=== PATIENT | female | born 1945 | race Caucasian/White ===

== ENCOUNTER 2021-12-03 12:08 | Observation (INO) | payer MEDICARE, OTHER, SELFPAY ==
[2021-12-03] VITALS (8 sets, daily range): BP systolic 141–182; BP diastolic 74–105; PULSE 78–99; RESP 16–18; TEMP 36.4–36.6; O2SAT 93–98; BMI 42.3; BMI 40.6
--- NOTE | 2021-12-03 12:34 | CT_ITS ---
STUDY: CTA HEAD AND NECK WITH CONTRAST REASON FOR EXAM: Female, 76 years old. Vertigo RADIATION DOSAGE (If Supplied By Facility): CTDIvol = ( 27.50 ) mGy, DLP = ( 1562.86 ) mGycm TECHNIQUE: CT angiography was performed with a multi-detector CT scanner. Data acquisition was obtained from the skull base through the vertex following intravenous administration of IV 100mL Isovue-[id number]. MIP images were reconstructed from the axial data set. Post-processing of the angiographic images was performed, with multiplanar reformation and 3D reconstruction. Individualized dose optimization techniques were used for this CT. COMPARISON: No relevant priors. FINDINGS: Normal bilateral petrous carotid arteries. There is calcified plaque formation of the right cavernous carotid artery, without a cross-sectional luminal stenosis. There is calcified plaque formation of the left cavernous carotid artery, without a cross-sectional luminal stenosis. Normal right A1 segments of the anterior cerebral artery. Normal left A1 segments of the anterior cerebral artery. Normal intact anterior communicating artery (ACOM). Normal bilateral A2 segments of the anterior cerebral arteries. Normal right M1 and M2 segments of the middle cerebral arteries, with a normal M1 bifurcation. Normal left M1 and M2 segments of the middle cerebral arteries, with a normal M1 bifurcation. Normal right posterior communicating artery (PCOM). There is a persistent origin of the left posterior cerebral artery with absence of the posterior communicating artery (PCOM). Normal bilateral vertebral arteries. Normal basilar artery with a normal basilar bifurcation. The visualized bilateral superior cerebellar (SCA) arteries are normal. Normal bilateral P1, P2 and visualized P3 segments of the posterior cerebral arteries. There is no demonstrated aneurysm of the [place]. Tiny lacunar infarcts in both basal ganglia. Mild degree of cerebral atrophy with the decreased markings in the periventricular distribution in keeping with small vessel disease. There is a 9.6 mm round lucency in the vertex of the right upper lobe age with a prior focal infarct. AORTIC ARCH: There is atherosclerotic calcific plaque formation of the aortic arch and great vessels arising from the aortic arch, without a hemodynamically significant stenosis. There is a bovine origin of the great vessels with a common origin of the brachiocephalic and left common carotid artery. Normal origin of the left subclavian artery. Atherosclerotic plaque formation at the origin of the right brachiocephalic artery. Heterogeneous appearance of the thyroid gland more prominent in the right lobe. RIGHT CAROTID ARTERIES: Normal right common carotid artery (CCA). Normal right common carotid bulb. Normal origin of the right internal carotid (ICA) artery without a hemodynamically significant stenosis. Normal visualized cervical portion of the right internal carotid artery. Normal origin of the right external carotid artery (ECA). LEFT CAROTID ARTERIES: Normal left common carotid artery (CCA). Normal left common carotid bulb. There is mild atherosclerotic plaque formation of the origin of the left internal carotid artery with less than 50% cross sectional diameter stenosis. Normal visualized cervical portion of the left internal carotid artery. Normal origin of the left external carotid artery (ECA). VERTEBRAL ARTERIES: There is enhancement within the bilateral vertebral arteries with a small left vertebral artery, and a dominant right vertebral artery. CT/CTA Head AND Neck W/ Contrast IMPRESSION: Mild nonstenotic calcific plaques at the origin of the left internal carotid artery. Small caliber left vertebral artery. 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 Electronically Signed: Inder Lloyd MD at 14:29 EST ,
--- NOTE | 2021-12-03 12:34 | EKG12_ITS ---
Test Reason : DIZZINESS Blood Pressure : / mmHG Vent. Rate : 089 BPM Atrial Rate : 089 BPM P-R Int : 162 ms QRS Dur : 082 ms QT Int : 382 ms P-R-T Axes : 051 044 016 degrees QTc Int : 464 ms Normal sinus rhythm Nonspecific ST abnormality Abnormal ECG Confirmed by JOE BOB, MERRICK ([id number]), associate entertainment editor KARSTEN FRAGOSO ([id number]) on 12/04/2021 11:34:27 AM Referred By: GORGE Confirmed By:MERRICK DIAZ MD
--- NOTE | 2021-12-03 12:45 | EX.ED.DYSGE1 ---
HPI History of Present Illness Chief Complaint: Dizziness Informant: patient Onset/Context/Timing Onset: Today Context: Sudden Onset Current Severity: Moderate Maximum Severity: Severe Narrative Narrative: Patient presents with abrupt onset of vertigo. Patient states he drove 70 miles to come visit someone. After getting out of the truck and walking up the sidewalk she developed sudden onset of vertigo. She states she also initially had trouble with her right arm shaking. That has subsided. She does report a history of vertigo but does not remember if there was an inciting factor. She denies chest pain or shortness of breath. No headache. She has had nausea and vomiting secondary to the dizziness. [facility] Medical History High cholesterol HTN (hypertension) Home Medications aspirin [Aspirin Low Dose] 81 mg PO DAILY 12/03/21 [History Last Taken 12/03/21] diltiazem HCl 240 mg PO DAILY 12/03/21 [History Last Taken 12/03/21] duloxetine 60 mg PO DAILY 12/03/21 [History Last Taken 12/03/21] hydrochlorothiazide 25 mg PO DAILY 12/03/21 [History Last Taken 12/03/21] ropinirole 2 mg PO QHS 12/03/21 [History Last Taken 12/02/21] simvastatin 10 mg PO QHS 12/03/21 [History Last Taken 12/02/21] spironolactone 25 mg PO DAILY 12/03/21 [History Last Taken 12/03/21] tolterodine 4 mg PO DAILY 12/03/21 [History Last Taken 12/02/21] Allergy/AdvReac Type Severity Reaction Status Date / Time levofloxacin [From Levaquin] Allergy PT UNSURE Verified 12/03/21 12:13 OF REACTION Sulfa (Sulfonamide Allergy Hives Verified 12/03/21 12:13 Antibiotics) Surgical History History of back surgery History of bladder surgery Hx of cholecystectomy S/P TKR (total knee replacement) Social History Smoking Status: Never smoker ROS ROS ED Constitutional Constitutional ED: Denies chills or fever(s) Eyes Eyes: Denies change in vision ENT ENT ED: Denies sore throat Cardiovascular Cardiovascular: Denies chest pain Respiratory/Chest Respiratory/Chest: Denies cough or dyspnea Gastrointestinal Gastrointestinal: Reports nausea and vomiting; Denies abdominal pain or diarrhea Genitourinary Genitourinary ED: Denies dysuria Musculoskeletal Musculoskeletal: Denies back pain or neck pain Integumentary Denies rash Neurologic Neurologic: Denies headache(s) or weakness Allergic/Immunologic Allergic/Immunologic ED: Denies urticaria EXAM Physical Exam Const Vital Signs: 12/03/21 12:09 12/03/21 12:16 12/03/21 14:45 Temperature 97.8 F Temperature Source Oral Pulse Rate 93 89 Respiratory Rate 16 18 Blood Pressure 182/74 H 155/76 H 161/85 H Blood Pressure Mean 110 102 110 Pulse Ox 96 98 Oxygen Delivery Method Room Air Room Air Positive well nourished and well developed General Appearance ED: well developed HEENT Reports moist mucous membranes Eyes PERRL and EOMs intact bilaterally Neck supple Chest Wall inspection of chest normal and palpation of chest normal Resp normal respiratory effort and clear to auscultation bilaterally Cardio regular rate and regular rhythm GI non-tender Palpation: soft Neuro oriented x3 and CN's II-XII intact bilaterally Neuro Narrative: No focal neurologic deficits at this time. Normal strength and sensation in all extremities. No facial droop noted. Sensorium / Orientation: alert Psych mental status grossly normal Skin no rashes or lesions noted MDM MDM MDM Narrative Medical decision making narrative: Patient initially given Zofran for nausea followed by Reglan and Benadryl. Lab work obtained, EKG ordered, CTA of the head and neck ordered. Lab Data Attestation: I reviewed the patient's lab results. Labs: Laboratory Results - last 24 hr 12/03/21 12/03/21 12/03/21 13:08 13:08 13:08 WBC 14.1 H RBC 4.78 Hgb 14.2 Hct 44.2 MCV 92.5 MCH 29.7 MCHC 32.1 RDW Std Deviation 46.3 H RDW Coeff of Shweta 13.6 Plt Count 326 MPV 9.6 Immature Gran % (Auto) 0.900 Neut % (Auto) 84.8 H Lymph % (Auto) 7.4 L [place] % (Auto) 6.7 Eos % (Auto) 0.1 Baso % (Auto) 0.1 Absolute Neuts (auto) 12.0 H Absolute Lymphs (auto) 1.04 Nucleated RBC % 0 PT 12.4 INR 1.0 APTT < 24.0 L Sodium 136 Potassium 3.9 Chloride 100 Carbon Dioxide 28.0 Anion Gap 8 BUN 25 H Creatinine 0.92 Estim Creat Clear Calc 36.20 Est GFR (MDRD) Af Amer 76 Est GFR (MDRD) Non-Af 63 BUN/Creatinine Ratio 27.3 H Glucose 160 H Calcium 9.9 Troponin I High Sens 9 Radiography Diagnostic Testing: Clinical Impression(s) from Imaging Studies Head/Neck CTA 12/03/21 12:34 IMPRESSION: Mild nonstenotic calcific plaques at the origin of the left internal carotid artery. Small caliber left vertebral artery. 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 Electronically Signed: Inder Lloyd MD at 14:29 EST , EKG Initial EKG: Attestation: I personally reviewed and interpreted this EKG as follows: Interpretation: Sinus Rhythm (Sinus 89 with no acute ischemia.) Treatment and Re-Evaluation Comments:: Repeat evaluation patient still feels nauseated and vertiginous. Nursing staff attempted to get patient up to bedside commode and states that she was very unsteady. Lab work is unremarkable. CTA of the head and neck reveal old lacunar infarcts but no acute findings at this time. I am concerned for possible stroke etiology as patient reported was just walking when this started. I did recommend admission for MRI and further work-up. I will speak with hospitalist. Discharge Plan Dx/Rx/DC Orders Clinical Impression: Vertigo Disposition Disposition: Acute Care Hospital [facility]
[2021-12-03] MEDS: 0.9% Normal Saline 1,000 ML 150 ML IV (13:10)
[2021-12-03] MEDS: Ondansetron 4 MG/2 ML Vial IV ×2 (13:10→18:57)
[2021-12-03 13:21] LABS: Absolute Lymphocyte Count 1.04 X10^3/uL (0.83-4.51); Basophil# 0.02 X10^3/uL; Basophil% 0.1 % (0-1); Eosinophil# 0.02 X10^3/uL; Eosinophils% 0.1 % (0-5); Hematocrit 44.2 % (37-47); Hemoglobin 14.2 g/dL (12.0-15.0); Lymphocyte # 1.04 X10^3/ul (0.83-4.51); Lymphocyte % 7.4 % (19-41); Mean Corp Hgb Conc 32.1 g/dL (32-36); Mean Corpuscular Hgb 29.7 pg (27.0-32.0); Mean Corpuscular Volume 92.5 fL (81-99); Mean Platelet Vol. 9.6 fl (6.2-12.0); Monocyte# 0.94 X10^3/uL; Monocyte% 6.7 % (0-10); NRBC Flagged by Analyzer 0 % (0-5); Neutrophil # 11.96 X10^3/uL (2.7-7.7); Neutrophil % 84.8 % (47-70); Platelet Count 326 K/mm3 (150-450); RBC Distribution Width CV 13.6 % (11.6-14.6); RBC Distribution Width SD 46.3 fl (35.1-43.9); Red Blood Count 4.78 M/mm3 (4.2-5.4); White Blood Count 14.1 K/mm3 (4.4-11.0)
[2021-12-03 13:41] LABS: Anion Gap 8 (5-15); BUN 25 mg/dL (7-18); BUN/Creat Ratio 27.3 RATIO (10-20); Calcium,Total 9.9 mg/dL (8.5-10.1); Chloride 100 mmol/L (98-107); Creatinine, Serum 0.92 mg/dL (0.55-1.02); EST Glomerular Filtration Rate 63 mL/min (>60); Est Glom Filt Rate - Afr Amer 76 mL/min (>60); Glucose 160 mg/dL (74-106); Potassium 3.9 mmol/L (3.5-5.1); Sodium Level 136 mmol/L (136-145); Troponin-I HS 9 pg/mL (3.0-54.0)
[2021-12-03 13:42] LABS: Prothrombin Time (Protime)PT. 12.4 SECONDS (11.7-14.9)
[2021-12-03 14:03] LABS: Partial Thromboplast Time < 24.0 Seconds (24.1-36.2)
[2021-12-03] MEDS: Metoclopramide 10 MG/2 ML Vial 5 MG IV (14:14)
[2021-12-03] MEDS: DiphenhydrAMINE 50 MG/ML Syringe 12.5 MG IV (14:15)
--- NOTE | 2021-12-03 16:00 | MRI_ITS ---
EXAM: MR HEAD WITHOUT INTRAVENOUS CONTRAST CLINICAL INDICATION: Vertigo TECHNIQUE: Multiplanar and multisequence MR images of the brain were obtained without intravenous contrast. This report was created using GPal report generation technology. COMPARISON: None. FINDINGS: BRAIN AND EXTRA-AXIAL SPACES: Chronic involutional changes of the brain. No intra- or extra-axial hemorrhage. No evidence of acute infarct. No intracranial mass or mass effect. There is preservation of the juarez/white matter interface. Posterior fossa structures are unremarkable. Ventricles are appropriate for age. No hydrocephalus. Basal cisterns are patent. SELLA: Unremarkable. Normal sella turcica, pituitary gland, infundibular stalk, optic chiasm and hypothalamus. AUDITORY SYSTEM: Unremarkable. The internal auditory canals are patent. BONES/JOINTS: Unremarkable. No discrete lytic or blastic abnormalities. SINUSES: Unremarkable as visualized. Clear. MASTOID AIR CELLS: Unremarkable as visualized. Clear. ORBITS: Unremarkable as visualized. Both globes, extraocular muscles, optic nerves and retrobulbar fat appear unremarkable. VASCULATURE: Unremarkable as visualized. Normal flow voids in the major intracranial circulation. MRI/Brain without Contrast IMPRESSION: No acute findings in the head/brain. Electronically Signed: Naveen Chavarria MD at 18:14 EST ,
--- NOTE | 2021-12-03 16:11 | CM.ED ---
RN CM Assessment Introduced role of RN CM to patient and patient Uriel at bedside. Patient is alert, oriented and able to participate in RN CM Assessment. Care providers, pharmacy, and demographics verified. Admit Dx: Vertigo Re-Admit: no Barriers/Issues: None. Patient drove with approx 70 miles to visit friends. PCP: Shlomo Ga Specialists: Ortho Preferred [facility]acy: [facility] Insurance: [facility] A/B, [employer] Benefit: Yes LNOK: Uriel Grijalva LW/HPOA: Patient states has both LW and HPOA completed. HPOA- Uriel Grijalva. Living Arrangements: Lives with in a 2SH, patient sleeps on gnd level. 3 steps to enter home w/rails. ADL?s: Ambulates with straight cane, Independent with ADLs Transportation: Both patient and drive. DME: Straight cane HHC: Past after knee surgery SNF: Rehab after knee surgery Goal: Home with and does not think will have any issues or concerns with going home. DC PLAN: Home with no anticipated needs identified at this time. RNCM f/u mobility prior to DC. Patient plan to have MRI. DALE Pérez
--- NOTE | 2021-12-03 16:21 | HP.PCM.HOS_ITS ---
Documented by User: Harjinder GARCIA 12/03/21 16:53 HPI - General General Date of Admission: 12/03/21 Date of Service: 12/03/21 Chief Complaint: Vertigo HPI Narrative NICKY BROWN is a 76-year-old female who presented to the ED at [facility] on 12/03/2021 with a chief complaint of vertigo. Patient reports that earlier today she drove over an hour to see her friend, when attempting to dismount from the truck this morning she immediately began to experience the onset of vertigo. Patient did not suffer any fall or lose consciousness with vertigo, but has had difficulty with her right arm shaking ever since their vertigo episode. Patient also seen on my evaluation with rhythmic leg jerks, which patient attributes to her RLS. Patient does not complain of headache, vision changes, slurred speech, numbness/tingling, or weakness in the upper/lower extremities. Patient does report some nausea and vomiting secondary to the dizziness of the vertigo. Patient denies any prior history of stroke, but does have a history of high cholesterol and hypertension. Patient denies any history of diabetes mellitus. Vital signs obtained in the ED are stable. CBC does demonstrate mildly elevated WBCs at 14.1, hemoglobin is 14.2 and platelets are 326. BMP is unremarkable. High-sensitivity troponins are not elevated. CT?A of the head/neck does demonstrate mild nonstenotic calcific plaques at the left ICA and old lacunar infarcts in the basal ganglion bilaterally as well is in the vertex portion of the right frontal lobe. Patient was given Zofran, Reglan and Benadryl in the ED, and patient reports symptoms are currently controlled. FOR[facility]LY [facility] Medical History High cholesterol HTN (hypertension) Non-smoker Restless legs Sleep apnea Home Medications aspirin [Aspirin Low Dose] 81 mg PO DAILY 12/03/21 [History Last Taken 12/03/21] diltiazem HCl 240 mg PO DAILY 12/03/21 [History Last Taken 12/03/21] duloxetine 60 mg PO DAILY 12/03/21 [History Last Taken 12/03/21] hydrochlorothiazide 25 mg PO DAILY 12/03/21 [History Last Taken 12/03/21] ropinirole 2 mg PO QHS 12/03/21 [History Last Taken 12/02/21] simvastatin 10 mg PO QHS 12/03/21 [History Last Taken 12/02/21] spironolactone 25 mg PO DAILY 12/03/21 [History Last Taken 12/03/21] tolterodine 4 mg PO DAILY 12/03/21 [History Last Taken 12/02/21] Allergy/AdvReac Type Severity Reaction Status Date / Time levofloxacin [From Levaquin] Allergy PT UNSURE Verified 12/03/21 12:13 OF REACTION Sulfa (Sulfonamide Allergy Hives Verified 12/03/21 12:13 Antibiotics) Family History (Updated 12/03/21 @ 16:42 by Harjinder GARCIA) Father CVA (cerebral vascular accident) Mother Cancer Surgical History History of appendectomy History of back surgery History of bladder surgery Hx of cholecystectomy S/P TKR (total knee replacement) Social History Smoking Status: Never smoker ROS Constitutional Constitutional: Denies anorexia, change in weight, chills, fatigue, fever(s), malaise, night sweats, weakness or other Eyes Eyes: Denies blurry vision, change in eye color, change in vision, discharge from eye(s), double vision, erythema, eye pain, loss of vision or other ENT HEENT: Denies abnormal hearing, dysphagia, ear pain, epistaxis, headache(s), hearing loss, nasal congestion, nasal discharge, post nasal drip, sinus pressure, sore throat or other Cardiovascular Cardiovascular: Denies chest pain, claudication, dyspnea on exertion, edema, lightheadedness, orthopnea, palpitations, paroxysmal nocturnal dyspnea, rapid heart rate, syncope or other Respiratory/Chest Respiratory/Chest: Denies cough, dyspnea, excessive phlegm production, hemoptysis, productive cough, shortness of breath at rest, shortness of breath with exertion, wheezing or other Gastrointestinal Gastrointestinal: Denies abdominal pain, coffee ground emesis, constipation, diarrhea, dyspepsia, hematemesis, hematochezia, loose stools, melena, nausea, vomiting or other Genitourinary Genitourinary: Denies burning urination, difficulty urinating, dysuria, hematuria, nocturia, urinary frequency, urinary hesitancy, urinary incontinence, urinary urgency or other Musculoskeletal Musculoskeletal: Denies arthralgias, back pain, joint pain, joint stiffness, joint swelling, myalgias, neck pain or other Neurologic Neurologic: Reports dizziness; Denies abnormal gait, abnormal speech, confusion, disequilibrium, focal weakness, headache(s), numbness, paresthesias, seizure- like activity, seizures, syncope, tingling, tremor(s) or other Psychiatric Psychiatric: Denies anxiety, depression, homicidal ideation, suicidal ideation or other Endocrine Endocrinology: Denies change in body appearance, cold intolerance, excessive sw eating, heat intolerance, polydipsia, polyuria or other Hematologic/Lymphatic Hematologic/Lymphatic: Denies anemia, easy bleeding, easy bruising, lymphadenopathy or other Allergic/Immunologic Allergic/Immunologic: Denies rhinitis, hives, eczemia, asthma or other Vital Signs Vital Signs Vital Signs: 12/03/21 12:09 12/03/21 12:16 12/03/21 14:45 Temperature 97.8 F Temperature Source Oral Pulse Rate 93 89 Respiratory Rate 16 18 Blood Pressure 182/74 H 155/76 H 161/85 H Blood Pressure Mean 110 102 110 Pulse Ox 96 98 Oxygen Delivery Method Room Air Room Air 12/03/21 16:07 Temperature 97.5 F L Temperature Source Oral Pulse Rate 78 Respiratory Rate 16 Blood Pressure 148/74 H Blood Pressure Mean 98 Pulse Ox 98 Oxygen Delivery Method Room Air Weight Weight: 208 lb 4.8 oz Body Mass Index (BMI) 40.6 Physical Exam Const alert and oriented x3 General Appearance: cooperative HEENT normocephalic, head/scalp atraumatic and hearing grossly normal bilaterally Eyes PERRL and EOMs intact bilaterally Neck no lymphadenopathy, supple and no JVD Resp normal respiratory effort, no retractions and no use of accessory muscles Cardio regular rate, regular rhythm and no JVD GI normal to inspection, nondistended, normoactive bowel sounds Extremity normal to inspection Skin no rashes or lesions noted, no wounds and skin turgor normal Neuro CN's II-XII intact bilaterally Psych affect normal Results Lab / Micro Data Result Diagrams: 12/03/21 13:08 12/03/21 13:08 Labs: Laboratory Results - last 24 hr 12/03/21 13:08: WBC 14.1 H, RBC 4.78, Hgb 14.2, Hct 44.2, MCV 92.5, MCH 29.7, MCHC 32.1, RDW Std Deviation 46.3 H, RDW Coeff of Shweta 13.6, Plt Count 326, MPV 9.6, Immature Gran % (Auto) 0.900, Neut % (Auto) 84.8 H, Lymph % (Auto) 7.4 L, Rosebud % (Auto) 6.7, Eos % (Auto) 0.1, Baso % (Auto) 0.1, Absolute Neuts (auto) 12.0 H, Absolute Lymphs (auto) 1.04, Nucleated RBC % 0 12/03/21 13:08: PT 12.4, INR 1.0, APTT < 24.0 L 12/03/21 13:08: Sodium 136, Potassium 3.9, Chloride 100, Carbon Dioxide 28.0, Anion Gap 8, BUN 25 H, Creatinine 0.92, Estim Creat Clear Calc 36.20, Est GFR (MDRD) Af Amer 76, Est GFR (MDRD) Non-Af 63, BUN/Creatinine Ratio 27.3 H, Gl ucose 160 H, Calcium 9.9, Troponin I High Sens 9 Radiology Impression Head/Neck CTA 12/03/21 12:34 IMPRESSION: Mild nonstenotic calcific plaques at the origin of the left internal carotid artery. Small caliber left vertebral artery. 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 Electronically Signed: Inder Lloyd MD at 14:29 EST , Assessment & Plan Assessment/Plan (1) Vertigo: PLAN: Patient is a 76-year-old female who presents to the ED at [facility] on 12/03/2021 with a chief complaint of vertigo. Patient will be admitted for evaluation management of vertigo as well as stroke rule out. 1) vertigo/stroke rule out. Patient presents with a 12-hour history of vertigo. Denies new and does not demonstrate any focal neurological deficits. CT-A of the head/neck did not demonstrate any severe stenosis or vessel abnormality. Patient does have a history of hypertension and high cholesterol, for which he takes medications for. Denies any prior stroke or seizure history. Patient is not diabetic. Believe patient's vertigo is more vertiginous in nature and is not related to stroke, but will rule out all the same. Plan; placed on PCU for observation, obtain brain MRI, obtain fasting lipid profile, obtain CBC and CMP in a.m., serial NIHSS every 4 hours, as needed Zofran, Compazine and Valium ordered. 2) HTN Stable, continue diltiazem and hydrochlorothiazide hold spironolactone. 3) depression/anxiety Continue Cymbalta. 4) RLS Continue ropinirole. DVT prophylaxis - low risk, not indicated Patient seen by Harjinder Varghese PA-C, under the supervision of Dr. Spence. Time spent on patient care: 25 minutes. Documented by User: Dr. Frankie Spence, 12/03/21 18:26 HPI - General General Date of Admission: 12/03/21 [facility] Medical History High cholesterol HTN (hypertension) Non-smoker Restless legs Sleep apnea Home Medications aspirin [Aspirin Low Dose] 81 mg PO DAILY 12/03/21 [History Last Taken 12/03/21] diltiazem HCl 240 mg PO DAILY 12/03/21 [History Last Taken 12/03/21] duloxetine 60 mg PO DAILY 12/03/21 [History Last Taken 12/03/21] hydrochlorothiazide 25 mg PO DAILY 12/03/21 [History Last Taken 12/03/21] ropinirole 2 mg PO QHS 12/03/21 [History Last Taken 12/02/21] simvastatin 10 mg PO QHS 12/03/21 [History Last Taken 12/02/21] spironolactone 25 mg PO DAILY 12/03/21 [History Last Taken 12/03/21] tolterodine 4 mg PO DAILY 12/03/21 [History Last Taken 12/02/21] Allergy/AdvReac Type Severity Reaction Status Date / Time levofloxacin [From Levaquin] Allergy PT UNSURE Verified 12/03/21 12:13 OF REACTION Sulfa (Sulfonamide Allergy Hives Verified 12/03/21 12:13 Antibiotics) Family History (Updated 12/03/21 @ 16:42 by Harjinder GARCIA) Father CVA (cerebral vascular accident) Mother Cancer Surgical History History of appendectomy History of back surgery History of bladder surgery Hx of cholecystectomy S/P TKR (total knee replacement) Social History Smoking Status: Never smoker Results Lab / Micro Data Result Diagrams: 12/03/21 13:08 12/03/21 13:08 Charges/Coding Addendum Addendum: Patient was seen and examined independently of Harjinder Varghese, she came to the emergency room today with complaints of dizziness and resultant nausea and vomiting. Patient states she was unable to walk due to the dizziness. Patient gives a past history of vertigo many years ago, she states that the feelings are similar to the vertigo that she had in the past except now she is nauseated and cannot walk. On examination she appeared in good health and spirits, she does not appear to be in any distress. Vital signs as documented. Skin warm and dry and without overt rashes. Neck without JVD, thyroid appears normal, trachea is midline, neck is supple. Lungs clear, normal air movement was noted. Heart exam notable for regular rhythm, normal sounds and absence of murmurs, rubs or gallops. Abdomen unremarkable and without evidence of organomegaly, masses, or abdominal aortic enlargement, bowel sounds are present in all 4 quadrants, no abdominal ten derness was noted. Extremities nonedematous, no cyanosis was noted, no clubbing was noted. Neuro: Cranial nerves II through XII are grossly intact, no focal motor deficits were noted, sensation to light touch and pinprick is intact, motor exam 5/5 throughout. Patient was not ambulated due to dizziness. Psych: Patient is alert and oriented x3, she does not appear anxious or depressed, she does not appear agitated. Work-up in the emergency room included a CTA of the head neck which showed mild calcific plaques at the origin of the left internal carotid artery, there was also old lacunar infarcts noted of the basal ganglia bilaterally as well as in the vertex portion of the right frontal lobe. CBC showed a normal white blood cell count, chemistry profile showed a BUN of 25 and a glucose of 160 but was otherwise unremarkable. Impression: #1 acute vertigo-rule out acute ischemic CVA, patient will be placed in observation status on PCU, NIH scores will be obtained, patient will be plac ed on Valium for symptom relief, she will undergo an MRI to rule out stroke. She will be seen by PT and OT. #2 essential hypertension-patient will remain on her present medications #3 hyperlipidemia-patient will remain on simvastatin #4 Restless leg syndrome-patient is on ropinirole at night #5 chronic depression/anxiety-patient is on Cymbalta I have reviewed Harjinder Varghese's history and physical including his medical assessment and plan of care and endorse it with the above additions. Total clinical time spent by myself addressing the patient's medical issues, reviewing all of her medical data, collaborating with the patient's care team, and examining the patient: 45 minutes
[2021-12-03] MEDS: 0.9% Saline Lock 10 ML Syringe IV ×2 (18:57→21:54)
[2021-12-03] MEDS: diazePAM 2 MG Tablet PO (18:57)
[2021-12-03] MEDS: Atorvastatin Calcium 10 MG Tablet 5 MG PO (20:18)
[2021-12-03] MEDS: Pramipexole Di-HCl 1 MG Tablet PO (20:19)
[2021-12-03] MEDS: proCHLORPERazine 10 MG/2 ML Vial 5 MG IV (21:54)
[2021-12-04] VITALS (9 sets, daily range): BP systolic 139–141; BP diastolic 76–82; PULSE 87–94; RESP 16–18; TEMP 36.3–36.8; O2SAT 88–100
[2021-12-04 05:29] LABS: Absolute Lymphocyte Count 1.27 X10^3/uL (0.83-4.51); Absolute Neutrophil Count 10.2 X10^3/uL (2.0-7.7); Basophil# 0.01 X10^3/uL; Basophil% 0.1 % (0-1); Eosinophil# 0.02 X10^3/uL; Eosinophils% 0.2 % (0-5); Hematocrit 44.5 % (37-47); Hemoglobin 14.1 g/dL (12.0-15.0); Lymphocyte # 1.27 X10^3/ul (0.83-4.51); Lymphocyte % 10.2 % (19-41); Mean Corp Hgb Conc 31.7 g/dL (32-36); Mean Corpuscular Hgb 29.5 pg (27.0-32.0); Mean Corpuscular Volume 93.1 fL (81-99); Mean Platelet Vol. 9.5 fl (6.2-12.0); Monocyte# 0.83 X10^3/uL; Monocyte% 6.7 % (0-10); NRBC Flagged by Analyzer 0 % (0-5); Platelet Count 339 K/mm3 (150-450); RBC Distribution Width CV 13.6 % (11.6-14.6); RBC Distribution Width SD 46.3 fl (35.1-43.9); Red Blood Count 4.78 M/mm3 (4.2-5.4); White Blood Count 12.4 K/mm3 (4.4-11.0)
[2021-12-04 06:09] LABS: Anion Gap 6 (5-15); BUN 20 mg/dL (7-18); BUN/Creat Ratio 23.9 RATIO (10-20); Calcium,Total 9.6 mg/dL (8.5-10.1); Chloride 98 mmol/L (98-107); Creatinine, Serum 0.84 mg/dL (0.55-1.02); EST Glomerular Filtration Rate 70 mL/min (>60); Est Glom Filt Rate - Afr Amer 85 mL/min (>60); Estimated Creatinine Clearance 39.65 ml/min; Glucose 112 mg/dL (74-106); Sodium Level 134 mmol/L (136-145); Thyroid Stim Hormone (TSH) 0.98 uIU/mL (0.358-3.74)
[2021-12-04] MEDS: Aspirin E.C. 81 MG Tablet PO (11:08)
[2021-12-04] MEDS: DULoxetine Hcl 60 MG Capsule PO (11:08)
[2021-12-04] MEDS: dilTIAZem CD 240 MG Capsule PO (11:08)
[2021-12-04] MEDS: Tolterodine Tartrate 4 MG CAP.SA PO (11:08)
[2021-12-04] MEDS: hydroCHLOROthiazide 25 MG Tablet PO (11:08)
--- NOTE | 2021-12-04 11:13 | PCM.DC ---
Discharge Instructions Diet Discharge Diet: No restrictions Activity Discharge Activity: Return to Normal Activity Weight Bearing Status: Weight bearing as tolerated Dressing / Incision Call your doctor if you observe: Fever of 101 or Higher, Numbness or Tingling, Shortness of breath, Dizziness, Chest pain, Increased palpitations (irregular heartbeat) and Calf discomfort Follow Up Care Please Follow Up With: Primary care provider When: Within the next two weeks. Test Results: Test results from this visit will be discussed in further detail at your follow-up appointment, if applicable. Discharge Plan Admission Admit Date/Time: 12/03/21 16:07 Primary Reason for Your Visit: Vertigo Attending Provider: Christopher Steel Discharge Orders/Prescriptions Prescriptions: New diazepam 2 mg Tablet 2 mg PO BID PRN PRN (Reason: Vertigo) Qty: 28 RF: 0 Continued tolterodine 4 mg capsule,extended release 24hr 4 mg PO DAILY RF: 0 diltiazem HCl 240 mg capsule,extended release 24hr 240 mg PO DAILY RF: 0 simvastatin 10 mg tablet 10 mg PO QHS RF: 0 aspirin [Aspirin Low Dose] 81 mg Tablet,Delayed Release (Dr/Ec) 81 mg PO DAILY RF: 0 spironolactone 25 mg tablet 25 mg PO DAILY RF: 0 ropinirole 2 mg tablet 2 mg PO QHS RF: 0 hydrochlorothiazide 25 mg tablet 25 mg PO DAILY RF: 0 duloxetine 60 mg capsule,delayed release(DR/EC) 60 mg PO DAILY RF: 0 Referrals / Follow Up: YOVANI LAMBERT [Other] - Within 2 Weeks Disposition Disposition (needs filled in before D/C Order can be placed): Home, Self Care
--- NOTE | 2021-12-04 11:52 | CASEMGMT ---
Pt provided with script for OP vestibular therapy. Per pt/, they have a shower chair and WW at home that pt can utilize, if needed. Mihir TRINIDAD CM
--- NOTE | 2021-12-04 14:47 | PCM.DC.SUM ---
Documented by User: Harjinder GARCIA 12/04/21 14:53 Providers Date of Admission: 12/03/21 Primary Care Physician: YOVANI LAMBERT Reason For Visit: VERTIGO Diagnosis Discharge Diagnosis (1) Vertigo: Status: Acute Code(s): R42 - Dizziness and giddiness Medications at Discharge Home Medications aspirin [Aspirin Low Dose] 81 mg PO DAILY 12/03/21 diltiazem HCl 240 mg PO DAILY 12/03/21 duloxetine 60 mg PO DAILY 12/03/21 hydrochlorothiazide 25 mg PO DAILY 12/03/21 ropinirole 2 mg PO QHS 12/03/21 simvastatin 10 mg PO QHS 12/03/21 spironolactone 25 mg PO DAILY 12/03/21 tolterodine 4 mg PO DAILY 12/03/21 diazepam 2 mg PO BID PRN PRN #28 tab 12/04/21 Hospital Course Summary of Care Provided Minutes Spent on Discharge: 20 Hospital Course: Patient is a 76-year-old female who was admitted to [facility] on 12/03/2021 for evaluation management of vertigo. Patient's only complaint on admission was vertigo, and did not demonstrate or complain of any focal neurological deficits. Patient's vertigo seem more vertiginous in nature and not the result of stroke, however due to the fact that patient had some nausea and vomiting prior to admission, patient was admitted for MRI to rule out stroke. Brain MRI did not demonstrate any acute evidence of acute events infarction. NIHSS obtained through admission was 0 and patient continued not to display any focal neurological deficits. Patient symptoms appeared to improve on Valium. Patient was advised to follow-up with her primary care provider for evaluation management of her vertigo, which appeared more chronic in nature based off of patient history. Patient was also given a prescription of as needed Valium. All other patient home medications were continued. Patient seen by Harjinder Varghese PA-C, under the supervision of Dr. Steel. Physical Exam Narrative Patient is a 76-year-old female who is comfortably resting in bed, alert and orient x3. Patient reports that her vertigo is significantly improved from admission. Denies development of any new symptoms overnight. Does not appear in acute distress. Const alert, oriented x3 and no apparent distress HEENT normocephalic, head/scalp atraumatic and hearing grossly normal bilaterally Eyes PERRL, EOMs intact bilaterally and conjunctivae normal Neck no lymphadenopathy, supple and no JVD Resp normal respiratory effort, no retractions and no use of accessory muscles Cardio regular rate, regular rhythm and no JVD GI normal to inspection, nondistended, normoactive bowel sounds Extremity normal to inspection Skin no rashes or lesions noted Neuro CN's II-XII intact bilaterally Psych affect normal Weight / BMI Weight Weight: 208 lb 4.8 oz Body Mass Index (BMI) 40.6 ABG / Lab / Microbiology Data Result Diagrams: 12/04/21 04:45 12/04/21 04:45 Laboratory: Laboratory Results - last 24 hr 12/04/21 04:45: WBC 12.4 H, RBC 4.78, Hgb 14.1, Hct 44.5, MCV 93.1, MCH 29.5, MCHC 31.7 L, RDW Std Deviation 46.3 H, RDW Coeff of Shweta 13.6, Plt Count 339, MPV 9.5, Immature Gran % (Auto) 0.800, Neut % (Auto) 82.0 H, Lymph % (Auto) 10.2 L, Robertson % (Auto) 6.7, Eos % (Auto) 0.2, Baso % (Auto) 0.1, Absolute Neuts (auto) 10.2 H, Absolute Lymphs (auto) 1.27, Nucleated RBC % 0 12/04/21 04:45: Sodium 134 L, Potassium 4.0, Chloride 98, Carbon Dioxide 30.0, Anion Gap 6, BUN 20 H, Creatinine 0.84, Estim Creat Clear Calc 39.65, Est GFR (MDRD) Af Amer 85, Est GFR (MDRD) Non-Af 70, BUN/Creatinine Ratio 23.9 H, Glucose 112 H, Calcium 9.6, TSH 0.98 Radiography Diagnostic Testing: Radiology Impression Brain MRI 12/03/21 16:00 IMPRESSION: No acute findings in the head/brain. Electronically Signed: Naveen Chavarria MD at 18:14 EST Reading Location ID and State: [facility] / [place] , Service support , D/C Instructions Discharge Diet: No restrictions Weight Bearing Status: Weight bearing as tolerated Call your doctor if you observe: Fever of 101 or Higher, Numbness or Tingling, Shortness of breath, Dizziness, Chest pain, Increased palpitations (irregular heartbeat) and Calf discomfort Please Follow Up With: Primary care provider When: Within the next two weeks. Meaningful Use Info Meaningful Use Diagnoses (Choose all that apply): None applicable Discharge Plan Admission Admit Date/Time: 12/03/21 16:07 Primary Reason for Your Visit: Vertigo Attending Provider: Christopher Steel Discharge Orders/Prescriptions Prescriptions: New diazepam 2 mg Tablet 2 mg PO BID PRN PRN (Reason: Vertigo) Qty: 28 RF: 0 Continued tolterodine 4 mg capsule,extended release 24hr 4 mg PO DAILY RF: 0 diltiazem HCl 240 mg capsule,extended release 24hr 240 mg PO DAILY RF: 0 simvastatin 10 mg tablet 10 mg PO QHS RF: 0 aspirin [Aspirin Low Dose] 81 mg Tablet,Delayed Release (Dr/Ec) 81 mg PO DAILY RF: 0 spironolactone 25 mg tablet 25 mg PO DAILY RF: 0 ropinirole 2 mg tablet 2 mg PO QHS RF: 0 hydrochlorothiazide 25 mg tablet 25 mg PO DAILY RF: 0 duloxetine 60 mg capsule,delayed release(DR/EC) 60 mg PO DAILY RF: 0 Referrals / Follow Up: YOVANI LAMBERT [Other] - Within 2 Weeks Disposition Disposition (needs filled in before D/C Order can be placed): Home, Self Care Documented by User: Dr. Christopher Steel MD 12/04/21 17:15 Providers Date of Admission: 12/03/21 Date of Discharge: 12/04/21 Reason For Visit: VERTIGO Medications at Discharge Home Medications aspirin [Aspirin Low Dose] 81 mg PO DAILY 12/03/21 diltiazem HCl 240 mg PO DAILY 12/03/21 duloxetine 60 mg PO DAILY 12/03/21 hydrochlorothiazide 25 mg PO DAILY 12/03/21 ropinirole 2 mg PO QHS 12/03/21 simvastatin 10 mg PO QHS 12/03/21 spironolactone 25 mg PO DAILY 12/03/21 tolterodine 4 mg PO DAILY 12/03/21 diazepam 2 mg PO BID PRN PRN #28 tab 12/04/21 Hospital Course Summary of Care Provided Hospital Course: This patient was seen in conjunction with RADHA Wiley. I have independently interviewed and examined the patient and reviewed pertinent history, examination findings, laboratory and plan of management. I have reviewed the note and agree with the documented findings with the few additional points. In brief, patient is admitted for dizziness and vertigo after she drove car for 1 hour and attempted to get out of the car feeling of vertigo and leg jerks. She was admitted in PCU. MRI brain negative for acute intracranial finding or stroke. Patient denies visual symptoms, no nystagmus found. No slurred speech, language deficit dysarthria or dysphagia, nausea or vomiting. Patient seen by PT and OT. Patient on baby aspirin at home. Prescription for diazepam given by PA. NIH stroke score 0. Patient has other comorbidities which include hypertension, dyslipidemia, restless leg syndrome and sleep apnea. Patient blood pressure was high in ED on 09/19 which was controlled later on. In the past she was on antihypertensive medication got along therefore was taken off antihypertensive medication. She was advised to follow-up with PCP for better control of hypertension and sleep apnea. She was on CPAP machine about 10 years ago and currently she is not using it. She has follow-up with PCP on next . Discharge medication reconciliation done. Discharge follow-up instructions completed. Discharge process discussed with the patient and all questions were answered to patient's satisfaction. Total time spent, exact 35 minutes on discharge meds reconciliation, examination, coordination of care with nurses and ancillary staff, review of imaging and blood test and discussion with the patient on follow-up instructions I spent 20 minutes, more than half time and PA spent 15 minutes I have discussed my assessment with RADHA Wiley and orders have been reviewed. Physical Exam Narrative Seen and examined. Patient admitted with dizziness and vertigo. Dizziness got improved and resolved with Antivert and diazepam. 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 MRI negative for acute stroke. CTA shows mild plaque of left ICA bifurcation otherwise no clinically significant stenosis or occlusion. I discussed with the differential diagnosis of vertigo, peripheral and central vertigo, imaging findings and overall hospital course with patient, her at the bedside and son on the phone. General: Alert, Oriented x3, Cooperative, morbid obesity BMI 40.7 KG per meter square HEENT: Atraumatic, PERRLA, EOMI, Normocephalic Oral: No Gingival or Mucosal Lesions/ Ulcerations Neck: Supple, No JVD, Negative Carotid Bruits Lungs: Air entry diminished in bilateral lung bases. No crepitation/rhonchi Cardiovascular: Regular rate, Regular Rhythm, Normal S1, Normal S2, No murmurs Abdomen: Bowel Sounds Present, Soft, Non Tender, Non-Distended : No renal angle tenderness. No suprapubic tenderness. Extremities: No edema, Capillary Refill Less than 3 Seconds Skin: No rashes, No breakdown Musculoskeletal: No Tenderness to Palpation of Joints or Extremities Neurological: Cranial nerves II-XII grossly intact, DTR 2+/4 and Symmetrical, Neuro grossly intact Psych/Mental Status: Normal Affect, Appropriate. ABG / Lab / Microbiology Data Result Diagrams: 12/04/21 04:45 12/04/21 04:45 Discharge Plan Admission Admit Date/Time: 12/03/21 16:07 Primary Reason for Your Visit: Vertigo Attending Provider: Christopher Steel Discharge Orders/Prescriptions Prescriptions: New diazepam 2 mg Tablet 2 mg PO BID PRN PRN (Reason: Vertigo) Qty: 28 RF: 0 Continued tolterodine 4 mg capsule,extended release 24hr 4 mg PO DAILY RF: 0 diltiazem HCl 240 mg capsule,extended release 24hr 240 mg PO DAILY RF: 0 simvastatin 10 mg tablet 10 mg PO QHS RF: 0 aspirin [Aspirin Low Dose] 81 mg Tablet,Delayed Release (Dr/Ec) 81 mg PO DAILY RF: 0 spironolactone 25 mg tablet 25 mg PO DAILY RF: 0 ropinirole 2 mg tablet 2 mg PO QHS RF: 0 hydrochlorothiazide 25 mg tablet 25 mg PO DAILY RF: 0 duloxetine 60 mg capsule,delayed release(DR/EC) 60 mg PO DAILY RF: 0 Referrals / Follow Up: YOVANI LAMBERT [Other] - Within 2 Weeks Disposition Disposition (needs filled in before D/C Order can be placed): Home, Self Care Charges/Coding Visit Charges OBSV E&M: 67690 Observ/hosp same date L3
== END 2021-12-04 11:17 | disposition home or self-care (01) ==
LOC: ED 15:26 → PCU 16:17
PROVIDERS: Physician Assistant; Admitting Provider Internal Medicine; Emergency Provider Emergency Medicine; Visit Provider Internal Medicine
DX: R42 Dizziness and giddiness (principal); I10 Essential (primary) hypertension; G47.30 Sleep apnea, unspecified; R11.2 Nausea with vomiting, unspecified; F41.9 Anxiety disorder, unspecified; E78.5 Hyperlipidemia, unspecified; F32.A Depression, unspecified; G25.81 Restless legs syndrome; Z79.82 Long term (current) use of aspirin; Z79.899 Other long term (current) drug therapy; R94.31 Abnormal electrocardiogram [ECG] [EKG]
CPT/HCPCS: 36415; 70496; 70498; 70551; 80048; 84443; 84484; 85025; 85610; 85730; 93005; 96361; 96374; 96375; 96376; 97162; 97166; 99218; 99285; J7030; Q9967; A4216; G0378; J2405